=== PATIENT | female | born 1970 | race Caucasian/White ===

== ENCOUNTER 2021-04-22 10:19 | Emergency (ER) | payer BC ==
[2021-04-22] MEDS ORDERED: Ketorolac Tromethamine 30 MG/ML VIAL ONE (11:57)
[2021-04-22] MEDS ORDERED: EPINEPHrine 1 MG/ML AMP ONE (13:03)
[2021-04-22] MEDS ORDERED: methylPREDNISolone Sod Succ/PF 125 MG/2 ML VIAL ONE (13:12)
[2021-04-22] MEDS ORDERED: Famotidine/PF 20 mg/2ml Vial ONE (13:13)
[2021-04-22] MEDS ORDERED: diphenhydrAMINE 50 MG/ML VIAL ONE (13:13)
[2021-04-22] MEDS ORDERED: Albuterol Sulfate 1.25 MG/3 ML NEB ONE (13:34)
== END 2021-04-22 12:10 | disposition home or self-care (01) ==
LOC: CSHERS 10:19
DX: T78.2XXA Anaphylactic shock, unspecified, initial encounter (principal); R51.9 Headache, unspecified; J45.909 Unspecified asthma, uncomplicated; E03.9 Hypothyroidism, unspecified; Z79.899 Other long term (current) drug therapy
CPT/HCPCS: 70450; 72125; 94640; 94760; 96372; 96374; 96375; J0171; J1200; J1885; J2930; S0028

== ENCOUNTER 2021-12-07 12:56 | Outpatient (CLI) | payer BC | END 2021-12-07 12:57 | disposition home or self-care (01) | LOC: CSHULT 12:56 | PROVIDERS: ATTEND Urology | DX: R31.29 Other microscopic hematuria (principal) | CPT/HCPCS: 76770 ==

== ENCOUNTER 2023-01-02 12:15 | Outpatient (CLI) | payer BC | END 2023-01-02 12:16 | disposition home or self-care (01) | LOC: CSHMAMMO 12:15 | PROVIDERS: ATTEND Family Medicine | DX: Z12.31 Encounter for screening mammogram for malignant neoplasm of breast (principal) | CPT/HCPCS: 77063; 77067 ==

== ENCOUNTER 2024-01-06 09:06 | Outpatient (CLI) | payer BC | END 2024-01-06 09:07 | disposition home or self-care (01) | LOC: CSHMAMMO 09:06 | PROVIDERS: ATTEND Family Medicine | DX: Z12.31 Encounter for screening mammogram for malignant neoplasm of breast (principal) | CPT/HCPCS: 77063; 77067 ==